=== PATIENT | male | born 1995 | race Caucasian/White ===

== ENCOUNTER 2017-07-05 11:00 | Emergency (ER) | payer SELFPAY ==
--- NOTE | 2017-07-05 11:38 | UC ---
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 Has had 3-4 days of anxiety , not sleeping, nausea. feels it could be related to relationship with father and car troubles at this time. Is on no meds, does smoke weed daily "I like the feeling". Lives at home with mother, girlfriend and 6 mo old daughter and states home life is stable. 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 Timing: Intermittent Episode Lasting - hours to days Severity Initially: Mild Severity Currently: Moderate Character: Anxious Aggravating Factor(s): Recent Stress Alleviating Factor(s): Nothing Associated Signs And Symptoms: Sleep Disturbance - denies suicidal ideation, Appetite Change, Social Withdrawal - Allergies/Home Medications Allergies/Adverse Reactions: Allergies Allergy/AdvReac Type Severity Reaction Status Date / Time No Known Allergies Allergy Verified 07/05/17 11:18 PMH/Surg Hx/FS Hx/Imm Hx Previously Healthy: Yes Psychological History: Anxiety - Surgical History Surgical History: None - Family History Known Family History: Positive: Other - anxiety (mother), father drug abuse/ETOH - Social History Occupation: Employed Full-time Lives: With Family Alcohol Use: None Substance Use Type: Marijuana Substance Use Comment - Amount & Last Used: almost daily Smoking Status (MU): Never Smoked Tobacco Review of Systems Constitutional: Negative Skin: Negative Eyes: Negative Respiratory: Negative Cardiovascular: Negative Gastrointestinal: Vomiting - with estreme anxiety, Nausea Genitourinary: Negative Neurological: Negative Psychological: Anxious Is Patient Immunocompromised?: No All Other Systems Reviewed And Are Negative: Yes Physical Exam Triage Information Reviewed: Yes Appearance: Well-Appearing, No Pain Distress, Well-Nourished - appears quiet, coop and willing to express feelings when prompted Vital Signs: Initial Vital Signs Temp 97.6 F 07/05/17 11:12 Pulse 77 07/05/17 11:12 Resp 16 07/05/17 11:12 BP 129/90 07/05/17 11:12 Pulse Ox 99 07/05/17 11:12 Neck exam: Normal Neck: Positive: No Lymphadenopathy, Other: - no thyromegaly Respiratory Exam: Normal Cardiovascular Exam: Normal Cardiovascular: Positive: RRR, No Murmur, Pulses Normal, Brisk Capillary Refill Abdominal Exam: Normal Abdomen Description: Positive: Nontender, No Organomegaly, Soft Bowel Sounds: Positive: Present Neurological Exam: Normal Neurological: Positive: Alert Psychological Exam: Normal Psychological: Positive: Other: - not tearful, appears a bit depressed. denies lethal ideation Skin Exam: Normal Psych Complaint Course/Dx - Course Course Of Treatment: iStop Reference #: [id number] - Differential Dx/Diagnosis Differential Diagnosis/HQI/PQRI: Anxiety, Depression, Drug Overdose/Intentional , Suicidal Ideation Provider Diagnoses: anxiety, depression Discharge - Discharge Plan Condition: Stable Disposition: HOME Prescriptions: hydrOXYzine pamoate [Vistaril] 25 mg PO TID PRN #30 capsule PRN Reason: Anxiety Patient Education Materials: Mood Disorders (ED), Generalized Anxiety Disorder (ED) Forms: *Work Release Referrals: Shayne Lester MD [Primary Care Provider] - (on Friday as planned) Additional Instructions: Take hydroxyzine as directed Please return here or to ER at any time if symptoms worsen
== END 2017-07-05 12:06 | disposition home or self-care (01) ==
LOC: UCEAST 11:00
DX: F41.9 Anxiety disorder, unspecified (principal); F32.9 Major depressive disorder, single episode, unspecified
CPT/HCPCS: 99202; G0463